=== PATIENT | female | born 1930 | race Caucasian/White ===

== ENCOUNTER 2017-03-30 19:17 | Emergency (ER) | payer MEDICARE, BC ==
[~2017-03-30] VITALS: Ht 157.5 cm; Wt 66.7 kg
[~2017-03-30 19:17] MED LIST: AMLO10 PO; ASPI325T PO; DIOV80TA4 PO; DOXA1 PO; FISH1000 PO; GLUCTAB PO; KCL10C PO; KLOR20TA6 PO; LISI10TA PO; OMEP20TA OR; OS-CTAB3 PO; OXYBXL10 PO; SIMV20 PO; TAB-TAB PO; ZOFR4TAB3 SL; stool softner PO
[2017-03-30 19:27] VITALS: BP 134/70; PULSE 69; RESP 18; TEMP 97.6; O2SAT 94
[2017-03-30 19:48] VITALS: BP 156/69; PULSE 83; RESP 16; O2SAT 97
[2017-03-30 19:52] VITALS: BP 156/69; PULSE 66; RESP 16; O2SAT 97
--- NOTE | 2017-03-30 19:57 | PD ---
HPI Chief Complaint: Dizziness Time Seen by Provider: 19:43 Travel History International Travel<30 days: No Contact w/Intl Traveler<30days: No Traveled to known affect area: No History of Present Illness HPI 87-year-old female complains of dizziness and nausea. Patient states that the symptoms started this morning. Patient states that she woke up with the dizziness and nausea. The symptoms have been intermittent all day since then. Patient states the dizziness is worse with head movement. Patient denies any headache. Patient denies any visual change. Patient denies any neck pain. Patient has occasional mid back pain and shooting pain down the right arm recently. Patient denies any pain now. Patient denies any chest pain or shortness of breath. Patient denies abdominal pain. Patient denies any focal weakness or numbness of extremity. Patient denies any recent all other injury. Patient denies any fever chills. PFSH Past Medical History Arthritis: Yes Cancer: No Cardiovascular Problems: No High Cholesterol: Yes Diabetes: Yes Diminished Hearing: No Endocrine: No Gastrointestinal Disorders: Yes (reflux) GERD: Yes Glaucoma: No Genitourinary: No Hepatitis: No Hiatal Hernia: No Hypertension: Yes Immune Disorder: No Implanted Vascular Access Dvce: Yes Musculoskeletal: Yes (arthritis) Neurologic: No Psychiatric: No Reproductive: No Respiratory: No Thyroid Disease: No ?: Not Tubal Ligation: Yes Past Surgical History Abdominal Surgery: Yes (lap zac) Ear Surgery: Yes (manisha inner ear reconstruction) Eye Surgery: Yes (manisha cataract ) Genitourinary Surgery: Yes (BLADDER SUSPENSION) Gynecologic Surgery: Yes (tubaligation) Joint Replacement: Yes (right knee) Pacemaker: No Other Surgery: Yes Social History Alcohol Use: No Tobacco Use: No Substance Use: No Allergies-Medications (Allergen,Severity, Reaction): Coded Allergies: Penicillin (Verified Allergy, Severe, HIVES, 03/30/17) Reported Meds & Prescriptions Reported Meds & Active Scripts Active Reported Fish Oil ([place]-3 Fatty Acids) 1,000 Mg Cap 1,000 Mg PO TID Fish Oil ([place]-3 Fatty Acids) 1,000 Mg Cap 1,000 Mg PO DAILY Potassium Chloride ER (Potassium Chloride) 20 Meq Tab 20 Meq PO DAILY Omeprazole 20 Mg Cap 20 Mg PO Simvastatin 20 Mg Tab 20 Mg PO DAILY Metformin (Metformin HCl) 500 Mg Tab 500 Mg PO DAILY With a meal Ditropan XL 24 HR (Oxybutynin Chloride) 10 Mg Tab 10 Mg PO EVERY OTHER DAY Doxazosin (Doxazosin Mesylate) 8 Mg Tab 8 Mg PO DAILY Diovan (Valsartan) 80 Mg Tab 80 Mg PO BID Lisinopril-Hctz 20-12.5 Mg Tab 1 Tab PO DAILY Amlodipine (Amlodipine Besylate) 10 Mg Tab 10 Mg PO DAILY Review of Systems General / Constitutional: No: Fever Eyes: No: Visual changes HENT: Positive: Lightheadedness, No: Headaches Cardiovascular: No: Chest Pain or Discomfort Respiratory: No: Shortness of Breath Gastrointestinal: Positive: Nausea, No: Abdominal Pain Genitourinary: No: Dysuria Musculoskeletal: No: Pain Skin: No Rash Neurologic: No: Weakness Psychiatric: No: Depression Endocrine: No: Polydipsia Hematologic/Lymphatic: No: Easy Bruising Physical Exam Narrative GENERAL: Well-nourished, well-developed patient. SKIN: Focused skin assessment warm/dry. HEAD: Normocephalic. EYES: No scleral icterus. No injection or drainage. Pupils 2 mm equal reactive. NECK: Supple, trachea midline. No JVD or lymphadenopathy. CARDIOVASCULAR: Regular rate and rhythm without murmurs, gallops, or rubs. RESPIRATORY: Breath sounds equal bilaterally. No accessory muscle use. GASTROINTESTINAL: Abdomen soft, non-tender, nondistended. MUSCULOSKELETAL: No cyanosis, or edema. BACK: Nontender without obvious deformity. No CVA tenderness. Neurologic exam: Patient's awake and alert oriented 3. No obvious focal neurological deficit. Data Data Last Documented VS Vital Signs Date Time Temp Pulse Resp B/P Pulse Ox O2 Delivery O2 Flow Rate FiO2 03/30/17 20:41 66 16 98 Room Air 03/30/17 19:52 156/69 03/30/17 19:27 97.6 Orders Electrocardiogram (03/30/17 19:50) Complete Blood Count With Diff (03/30/17 19:50) Comprehensive Metabolic Panel (03/30/17 19:50) Prothrombin Time / Inr (Pt) (03/30/17 19:50) Act Partial Throm Time (Ptt) (03/30/17 19:50) Urinalysis - C+S If Indicated (03/30/17 19:50) Ct Brain W/O Iv Contrast(Rout) (03/30/17 19:50) Iv Access Insert/Monitor (03/30/17 19:50) Ecg Monitoring (03/30/17 19:50) Oximetry (03/30/17 19:50) Meclizine (Antivert) (03/30/17 20:00) Ondansetron Inj (Zofran Inj) (03/30/17 20:00) Sodium Chlor 0.9% 1000 Ml Inj (Ns 1000 M (03/30/17 20:00) Urine Culture (03/30/17 20:20) Labs Laboratory Tests Test 03/30/17 03/30/17 20:20 20:30 Urine Color YELLOW Urine Turbidity CLEAR Urine pH 7.0 Urine Specific [place] 1.012 Urine Protein NEG mg/dL Urine Glucose (UA) NEG mg/dL Urine Ketones TRACE mg/dL Urine Occult Blood NEG Urine Nitrite NEG Urine Bilirubin NEG Urine Leukocyte Esterase SMALL Urine WBC 3-5 /hpf Urine WBC Clumps OCC Urine Squamous Epithelial 0-5 /hpf Cells Urine Hyaline Casts 6-9 /lpf Microscopic Urinalysis Comment CULTURE INDICATED White Blood Count 6.0 TH/MM3 Red Blood Count 4.72 MIL/MM3 Hemoglobin 14.3 GM/DL Hematocrit 42.8 % Mean Corpuscular Volume 90.9 FL Mean Corpuscular Hemoglobin 30.4 PG Mean Corpuscular Hemoglobin 33.4 % Concent Red Cell Distribution Width 12.2 % Platelet Count 242 TH/MM3 Mean Platelet Volume 7.9 FL Neutrophils (%) (Auto) 83.4 % Lymphocytes (%) (Auto) 11.1 % Monocytes (%) (Auto) 4.3 % Eosinophils (%) (Auto) 0.8 % Basophils (%) (Auto) 0.4 % Neutrophils # (Auto) 5.0 TH/MM3 Lymphocytes # (Auto) 0.7 TH/MM3 Monocytes # (Auto) 0.3 TH/MM3 Eosinophils # (Auto) 0.0 TH/MM3 Basophils # (Auto) 0.0 TH/MM3 CBC Comment DIFF FINAL Differential Comment Prothrombin Time 10.9 SEC Prothromb Time International 1.0 RATIO Ratio Activated Partial 28.1 SEC Thromboplast Time Sodium Level 138 MEQ/L Potassium Level 3.1 MEQ/L Chloride Level 101 MEQ/L Carbon Dioxide Level 26.5 MEQ/L Anion Gap 11 MEQ/L Blood Urea Nitrogen 14 MG/DL Creatinine 0.83 MG/DL Estimat Glomerular Filtration 65 ML/MIN Rate Random Glucose 146 MG/DL Calcium Level 9.8 MG/DL Total Bilirubin 0.5 MG/DL Aspartate Amino Transf 24 U/L (AST/SGOT) Alanine Aminotransferase 29 U/L (ALT/SGPT) Alkaline Phosphatase 71 U/L Total Protein 8.0 GM/DL Albumin 4.2 GM/DL MDM Medical Decision Making Medical Screen Exam Complete: Yes Emergency Medical Condition: Yes Interpretation(s) Last Impressions Head CT 03/30/17 1950 Signed Impressions: Service Date/Time: Thursday, March 30, 2017 20:10 - CONCLUSION: Unremarkable noncontrast CT. Eladio Alejandro MD 21:47 PM. CBC within normal limit. Potassium 3.1. UA positive for WBC. Differential Diagnosis Differential diagnosis including acute vertigo, electrolyte imbalance, dehydration, TIA, CVA, arrhythmia. Narrative Course 87-year-old female with dizziness and nausea. Normal saline solution 100 cc an hour. Zofran 4 mg IV. Meclizine 25 mg by mouth. KCl 40 mEq by mouth given. Bactrim DS one tablet by mouth given. Diagnosis Primary Impression: Acute onset of severe vertigo Additional Impressions: Hypokalemia UTI (urinary tract infection) Qualified Code: N30.00 - Acute cystitis without hematuria Patient Instructions: General Instructions Additional Instructions: Take medications as directed. Follow-up with personal physician. Return if persistent problem or worse. Med/Other Pt SpecificInfo: Prescription(s) given Scripts Potassium Chloride ER 10 Meq Cap10 Meq PO DAILY #7 CAP Ref 0 Prov:Ugo Dietrich MD 03/30/17 Ondansetron Odt (Zofran Odt)4 Mg Tab4 Mg SL Q6HR PRN (Nausea/Vomiting) #10 TAB Prov:Ugo Dietrich MD 03/30/17 Meclizine 25 Mg Tab25 Mg PO TID PRN (VERTIGO) #21 TAB Prov:Ugo Dietrich MD 03/30/17 Sulfamethoxazole-Trimethoprim (Bactrim DS)800-160 Mg Tab1 Tab PO BID #14 TAB Prov:Ugo Dietrich MD 03/30/17 Disposition: 01 DISCHARGE HOME Condition: Stable Ugo Dietrich MD Mar 30, 2017 19:57
[2017-03-30] MEDS ORDERED: SODIUM CHLOR 0.9% 1000 ML INJ 1,000 ML IV SCH (20:00)
[2017-03-30] MEDS ORDERED: ONDANSETRON HCL 4 MG/2 ML VIAL IV PUSH ONE (20:00)
[2017-03-30] MEDS ORDERED: MECLIZINE HCL 25 MG TAB PO ONE (20:00)
--- NOTE | 2017-03-30 20:31 | RADRPT ---
EXAM DATE/TIME: 03/30/2017 20:10 [facility] COMPARISON: CT BRAIN W/O CONTRAST, July 19, 2016, 17:38. INDICATIONS : Dizziness. Nausea. RADIATION DOSE: 55.92 CTDIvol (mGy) MEDICAL HISTORY : Hypertension. Diabetes mellitus type 2. SURGICAL HISTORY : None. ENCOUNTER: Initial ACUITY: 1 day PAIN SCALE: 0/10 LOCATION: cranial TECHNIQUE: Multiple contiguous axial images were obtained of the head. Using automated exposure control and adj ustment of the mA and/or kV according to patient size, radiation dose was kept as low as reasonably a chievable to obtain optimal diagnostic quality images. DICOM format image data is available electro nically for review and comparison. FINDINGS: CEREBRUM: The ventricles are normal for age. No evidence of midline shift, mass lesion, hemorrhage or acute in farction. No extra-axial fluid collections are seen. POSTERIOR FOSSA: The cerebellum and brainstem are intact. The 4th ventricle is midline. The cerebellopontine angle i s unremarkable. EXTRACRANIAL: The visualized portion of the orbits is intact. SKULL: The calvaria is intact. No evidence of skull fracture. CONCLUSION: Unremarkable noncontrast CT. Eladio Alejandro MD on March 30, 2017 at 20:28 Board Certified Radiologist. This report was verified electronically.
[2017-03-30 20:44] LABS: BLOOD, URINE NEG (NEG); GLUCOSE,URINE NEG (NEG); KETONE, URINE TRACE mg/dL (NEG); NITRITE,URINE NEG (NEG)
[2017-03-30 20:45] LABS: BASOPHIL % 0.4 % (0.0-2.0); EOSINOPHIL % 0.8 % (0.0-4.0); HEMATOCRIT 42.8 % (35.0-46.0); HEMO FLAGS DIFF FINAL; LYMPH % 11.1 % (9.0-44.0); LYMPHOCYTE # 0.7 TH/MM3 (1.0-4.8); MEAN CELL VOLUME 90.9 FL (80.0-100.0); MEAN CORPUSCULAR HEMOGLOBIN 30.4 PG (27.0-34.0); MEAN CORPUSCULAR HGB CONC 33.4 % (32.0-36.0); MONO % 4.3 % (0.0-8.0); NEUT % 83.4 % (16.0-70.0); PLATELET COUNT 242 TH/MM3 (150-450); RED BLOOD COUNT 4.72 MIL/MM3 (4.00-5.30); RED CELL DISTRIBUTION WIDTH 12.2 % (11.6-17.2)
[2017-03-30] MEDS ORDERED: OXYBXL10 PO (20:58)
[2017-03-30] MEDS ORDERED: LISI20TA PO (20:58)
[2017-03-30] MEDS ORDERED: AMLO10TA2 PO (20:58)
[2017-03-30] MEDS ORDERED: OMEP20CA2 PO (20:58)
[2017-03-30] MEDS ORDERED: FISH1000 PO (20:58)
[2017-03-30] MEDS ORDERED: DOXA1TAB43 PO (20:58)
[2017-03-30] MEDS ORDERED: DIOV80TA4 PO (20:58)
[2017-03-30] MEDS ORDERED: SIMV20TA PO (20:58)
[2017-03-30] MEDS ORDERED: METF500T PO (20:58)
[2017-03-30] MEDS ORDERED: POTA-163 PO (20:58)
[2017-03-30 20:59] LABS: CHLORIDE 101 MEQ/L (98-107); POTASSIUM 3.1 MEQ/L (3.5-5.1); SODIUM (NA) 138 MEQ/L (136-145)
[2017-03-30 21:03] LABS: ANION GAP 11 MEQ/L (5-15); BICARBONATE 26.5 MEQ/L (21.0-32.0); BLOOD UREA NITROGEN 14 MG/DL (7-18)
[2017-03-30 21:06] LABS: ALT (GPT) 29 U/L (10-53); APTT (PATIENT) 28.1 SEC (24.3-30.1); AST (GOT) 24 U/L (15-37); GLOMERULAR FILTRATION RATE 65 ML/MIN (>89); PROTHROMBIN TIME - PATIENT 10.9 SEC (9.8-11.6)
[2017-03-30 21:08] LABS: TOTAL BILIRUBIN ADULT 0.5 MG/DL (0.2-1.0)
[2017-03-30 21:09] LABS: ALKALINE PHOSPHATASE 71 U/L (45-117)
[2017-03-30 21:12] LABS: URINE COLOR YELLOW (YELLW/STRAW)
[2017-03-30 21:15] VITALS: BP 197/87; PULSE 74; RESP 16; O2SAT 97
[2017-03-30 21:15] LABS: COMMENT (UR) CULTURE INDICATED; CULTURE IF INDICATED CULTURE INDICATED; SQUAMOUS EPITHELIAL CELL URINE 0-5 /hpf (0-5)
[2017-03-30] MEDS ORDERED: ZOFR4TAB3 SL (21:54)
[2017-03-30] MEDS ORDERED: POTA10CA PO (21:54)
[2017-03-30] MEDS ORDERED: MECL-62 PO (21:54)
[2017-03-30] MEDS ORDERED: BACT800T5 PO (21:54)
[2017-03-30] MEDS ORDERED: SULFAMETHOXAZOLE-TRIMETHOPRIM DS 800-160 MG TAB PO ONE (22:00)
[2017-03-30] MEDS ORDERED: POTASSIUM CHLORIDE 20 MEQ CONTROLLED RELEASE TAB PO ONE (22:00)
[2017-03-30 22:20] VITALS: BP 172/94; PULSE 77; RESP 16; O2SAT 97
--- NOTE | 2017-03-31 13:24 | EKG ---
Date Performed: 03/30/2017 Time Performed: 20:01:13 PTAGE: 87 years EKG: Sinus rhythm WITH OCCASIONAL VENTRICULAR PREMATURE COMPLEXES NONSPECIFIC T-WAVE ABNORMALITY BORDERLINE ECG Compar ed to prior tracing no significant change PREVIOUS TRACING : 07/19/2016 17.15 DOCTOR: Vijay Thompson Interpretating Date/Time 03/31/2017 13:21:57
== END 2017-03-30 22:26 | disposition home or self-care (01) ==
LOC: PHED 19:17
DX: R42 Dizziness and giddiness (principal); E87.6 Hypokalemia; N30.00 Acute cystitis without hematuria; R11.0 Nausea; M79.601 Pain in right arm; M54.6 Pain in thoracic spine; R94.31 Abnormal electrocardiogram [ECG] [EKG]; E11.9 Type 2 diabetes mellitus without complications; I10 Essential (primary) hypertension; E78.00 Pure hypercholesterolemia, unspecified; Z79.84 Long term (current) use of oral hypoglycemic drugs; Z87.39 Personal history of other diseases of the musculoskeletal system and connective tissue; Z87.19 Personal history of other diseases of the digestive system
CPT/HCPCS: 70450; 80053; 81001; 85025; 85610; 85730; 87086; 93005; 96361; 96374; 99285; J2405; J7030

== ENCOUNTER 2017-04-03 13:32 | Observation (INO) | payer MEDICARE, BC ==
[~2017-04-03] VITALS: Ht 157.5 cm; Wt 67.0 kg
[~2017-04-03 13:32] MED LIST changes: -AMLO10 PO; +AMLO10TA2 PO; -ASPI325T PO; +BACT800T5 PO; -DOXA1 PO; +DOXA1TAB43 PO; -GLUCTAB PO; -KCL10C PO; -KLOR20TA6 PO; -LISI10TA PO; +LISI20TA PO; +MECL-62 PO; +METF500T PO; +OMEP20CA2 PO; -OMEP20TA OR; -OS-CTAB3 PO; +POTA-163 PO; +POTA10CA PO; -SIMV20 PO; +SIMV20TA PO; -TAB-TAB PO; -stool softner PO
[2017-04-03 13:45] VITALS: BP 128/64; PULSE 70; RESP 18; TEMP 97.7; O2SAT 97
[2017-04-03] MEDS ORDERED: SODIUM CHLOR 0.9% 1000 ML INJ 1,000 ML IV ONE (14:04)
[2017-04-03] MEDS ORDERED: SODIUM CHLORIDE 0.9% FLUSH 10 ML FLUSH IVF PRN (14:15)
[2017-04-03] MEDS ORDERED: ONDANSETRON HCL 4 MG/2 ML VIAL IVP ONE (14:15)
[2017-04-03 14:18] LABS: BLOOD, URINE NEG (NEG); GLUCOSE,URINE NEG (NEG); KETONE, URINE NEG (NEG); NITRITE,URINE NEG (NEG); PH, URINE 7.5 (5.0-8.5)
[2017-04-03 14:19] LABS: AUTOMATED NEUTROPHIL # 3.3 TH/MM3 (1.8-7.7); BASOPHIL % 0.8 % (0.0-2.0); EOSINOPHIL # 0.2 TH/MM3 (0-0.4); EOSINOPHIL % 3.5 % (0.0-4.0); HEMO FLAGS DIFF FINAL; LYMPH % 25.1 % (9.0-44.0); LYMPHOCYTE # 1.3 TH/MM3 (1.0-4.8); MEAN CELL VOLUME 90.5 FL (80.0-100.0); MEAN CORPUSCULAR HEMOGLOBIN 30.7 PG (27.0-34.0); MEAN CORPUSCULAR HGB CONC 33.9 % (32.0-36.0); MONO % 8.6 % (0.0-8.0); PLATELET COUNT 185 TH/MM3 (150-450); RED BLOOD COUNT 4.09 MIL/MM3 (4.00-5.30); RED CELL DISTRIBUTION WIDTH 12.1 % (11.6-17.2); WHITE BLOOD COUNT 5.2 TH/MM3 (4.0-11.0)
[2017-04-03 14:26] LABS: CHLORIDE 100 MEQ/L (98-107); POTASSIUM 3.4 MEQ/L (3.5-5.1); SODIUM (NA) 136 MEQ/L (136-145)
[2017-04-03 14:29] LABS: ANION GAP 11 MEQ/L (5-15); BICARBONATE 24.9 MEQ/L (21.0-32.0); BLOOD UREA NITROGEN 17 MG/DL (7-18); MAGNESIUM 1.9 MG/DL (1.5-2.5)
[2017-04-03 14:32] LABS: GLOMERULAR FILTRATION RATE 39 ML/MIN (>89)
[2017-04-03 14:39] VITALS: BP_SYST 128; BP_SYST 135; BP_SYST 140; BP_DIAS 52; BP_DIAS 62; BP_DIAS 64; RESP 18; O2SAT 97
[2017-04-03 14:39] LABS: CREATINE KINASE 54 U/L (26-192)
[2017-04-03 14:47] LABS: METHOD OF COLLECTION CLEAN CATCH; SQUAMOUS EPITHELIAL CELL URINE 0-5 /hpf (0-5); URINE COLOR YELLOW (YELLW/STRAW)
[2017-04-03 14:48] LABS: COMMENT (UR) CULT NOT INDICATED; CULTURE IF INDICATED CULT NOT INDICATED
--- NOTE | 2017-04-03 14:53 | PD ---
HPI Chief Complaint: Syncope/Near-Syncope Time Seen by Provider: 13:53 Travel History International Travel<30 days: No Contact w/Intl Traveler<30days: No Traveled to known affect area: No History of Present Illness HPI 87-year-old female arrives to the ER with a complaint of weakness generalized weakness which started while she was in [employer] today. She had to sit down. EMS was called and upon arrival blood pressure was in the 80s. 500 cc normal saline started and the patient reports improvement at the time of her evaluation in the ER. She did not actually lose consciousness earlier while [employer]. 4 days ago she was seen here and prescribed antibiotics for UTI. She was also diagnosed with hypokalemia and at that time she was diagnosed with vertigo as well. She has no vertigo today. She states she has otherwise been in her normal state of good health and is unsure whether she should have symptoms as she does. PFSH Past Medical History Arthritis: Yes Cancer: No Cardiovascular Problems: Yes (HTN) High Cholesterol: Yes Diabetes: Yes Patient Takes Glucophage: Yes ([id number]) Diminished Hearing: Yes Endocrine: No Gastrointestinal Disorders: Yes (reflux) GERD: Yes Glaucoma: No Genitourinary: No Hepatitis: No Hiatal Hernia: No Hypertension: Yes Immune Disorder: No Implanted Vascular Access Dvce: Yes Medical other: Yes (ACID REFLUX-BLADDER LEAKING-EARLY MACULAR DEGENERATION) Musculoskeletal: Yes (arthritis) Neurologic: No Psychiatric: No Reproductive: No Respiratory: No Immunizations Current: Yes Thyroid Disease: No Tetanus Vaccination: Unknown Influenza Vaccination: Yes ?: Not Dilation and Curettage (D&C): Yes Tubal Ligation: Yes Past Surgical History Abdominal Surgery: Yes (lap zac) Ear Surgery: Yes (manisha inner ear reconstruction) Eye Surgery: Yes (manisha cataract ) Genitourinary Surgery: Yes (BLADDER SUSPENSION) Gynecologic Surgery: Yes (tubaligation) Joint Replacement: Yes (right knee) Pacemaker: No Other Surgery: Yes Social History Alcohol Use: No Tobacco Use: No Substance Use: No Allergies-Medications (Allergen,Severity, Reaction): Coded Allergies: Penicillin (Verified Allergy, Severe, HIVES, 04/03/17) Reported Meds & Prescriptions Reported Meds & Active Scripts Active Meclizine (Meclizine HCl) 25 Mg Tab 25 Mg PO TID PRN Reported Fish Oil ([place]-3 Fatty Acids) 1,000 Mg Cap 1,000 Mg PO TID Potassium Chloride ER (Potassium Chloride) 20 Meq Tab 20 Meq PO DAILY Omeprazole 20 Mg Cap 20 Mg PO Simvastatin 20 Mg Tab 20 Mg PO DAILY Metformin (Metformin HCl) 500 Mg Tab 500 Mg PO DAILY With a meal Ditropan XL 24 HR (Oxybutynin Chloride) 10 Mg Tab 10 Mg PO EVERY OTHER DAY Doxazosin (Doxazosin Mesylate) 8 Mg Tab 8 Mg PO DAILY Diovan (Valsartan) 80 Mg Tab 80 Mg PO BID Amlodipine (Amlodipine Besylate) 10 Mg Tab 10 Mg PO DAILY Review of Systems Except as stated in HPI: all other systems reviewed are Neg Physical Exam Narrative GENERAL: 87 yo F, WNWD, NAD SKIN: Warm and dry. HEAD: Atraumatic. Normocephalic. EYES: Pupils equal and round. No scleral icterus. No injection or drainage. ENT: No nasal bleeding or discharge. Mucous membranes pink and moist. NECK: Trachea midline. No JVD. CARDIOVASCULAR: Regular rate and rhythm. RESPIRATORY: No accessory muscle use. Clear to auscultation. Breath sounds equal bilaterally. GASTROINTESTINAL: Abdomen soft, non-tender, nondistended. Hepatic and splenic margins not palpable. MUSCULOSKELETAL: Extremities without clubbing, cyanosis, or edema. No obvious deformities. NEUROLOGICAL: Awake and alert. No obvious cranial nerve deficits. Motor grossly within normal limits. Five out of 5 muscle strength in the arms and legs. Normal speech. PSYCHIATRIC: Appropriate mood and affect; insight and judgment normal. Data Data Last Documented VS Vital signs reviewed Orders Electrocardiogram (04/03/17 14:04) Basic Metabolic Panel (Bmp) (04/03/17 14:04) Complete Blood Count With Diff (04/03/17 14:04) Magnesium (Mg) (04/03/17 14:04) Ckmb (Isoenzyme) Profile (04/03/17 14:04) Troponin I (04/03/17 14:04) Urinalysis - C+S If Indicated (04/03/17 14:04) Blood Glucose (04/03/17 14:04) Ecg Monitoring (04/03/17 14:04) Iv Access Insert/Monitor (04/03/17 14:04) Oximetry (04/03/17 14:04) Ondansetron Inj (Zofran Inj) (04/03/17 14:15) Sodium Chloride 0.9% Flush (Ns Flush) (04/03/17 14:15) Sodium Chlor 0.9% 1000 Ml Inj (Ns 1000 M (04/03/17 14:04) Orthostatic Vital Signs (04/03/17 14:04) Admit Order (Ed Use Only) (04/03/17 15:22) Labs MDM Medical Decision Making Medical Screen Exam Complete: Yes Emergency Medical Condition: Yes Medical Record Reviewed: Yes Differential Diagnosis Electrolyte imbalance, arrhythmia, UTI, anemia, renal failure, hypoglycemia, dehydration, medication side effect Narrative Course CBC & BMP Diagram 04/03/17 14:10 Tn < 0.02 EKG: Sinus, rate 71, nonspecific T wave abnormality UA: No UTI Patient reports dizziness and lightheadedness at time of reassessment: 3:15 PM. Patient has acute kidney injury. She has no outside follow-up and she lives alone. Evidently Dr. Johnson's office has been closed and she has been unable to get through by phone. She even visited the office. In any case admission for management of dizziness/lightheadedness complaints and acute kidney injury is considered appropriate. Discussed with Dr. Pringle. Diagnosis Primary Impression: [place] (acute kidney injury) Additional Impression: Syncope, near Admitting Information Admitting Physician Requests: Observation Scripts Sennosides-Docusate Sodium (Senna Plus 8.6-50 mg)1 Tab Tab1 Tab PO BID #60 TAB Prov:Shahnaz Pringle MD 04/04/17 Sudarshan Sanchez MD Apr 03, 2017 14:53 Red Cell Distribution Width 12.1 % Platelet Count 185 TH/MM3 Mean Platelet Volume 8.0 FL Neutrophils (%) (Auto) 62.0 % Lymphocytes (%) (Auto) 25.1 % Monocytes (%) (Auto) 8.6 % Eosinophils (%) (Auto) 3.5 % Basophils (%) (Auto) 0.8 % Neutrophils # (Auto) 3.3 TH/MM3 Lymphocytes # (Auto) 1.3 TH/MM3 Monocytes # (Auto) 0.4 TH/MM3 Eosinophils # (Auto) 0.2 TH/MM3 Basophils # (Auto) 0.0 TH/MM3 CBC Comment DIFF FINAL Differential Comment Urine Collection Type CLEAN CATCH Urine Color YELLOW Urine Turbidity CLEAR Urine pH 7.5 Urine Specific [place] 1.014 Urine Protein NEG mg/dL Urine Glucose (UA) NEG mg/dL Urine Ketones NEG mg/dL Urine Occult Blood NEG Urine Nitrite NEG Urine Bilirubin NEG Urine Leukocyte Esterase MOD Urine WBC 3-5 /hpf Urine Squamous Epithelial 0-5 /hpf Cells Urine Renal Epithelial Cells 6-8 /hpf Urine Hyaline Casts 3-5 /lpf Microscopic Urinalysis Comment CULT NOT INDICATED Urine Collection Time 14:10 Sodium Level 136 MEQ/L Potassium Level 3.4 MEQ/L Chloride Level 100 MEQ/L Carbon Dioxide Level 24.9 MEQ/L Anion Gap 11 MEQ/L Blood Urea Nitrogen 17 MG/DL Creatinine 1.30 MG/DL Estimat Glomerular Filtration 39 ML/MIN Rate Random Glucose 117 MG/DL Calcium Level 8.8 MG/DL Magnesium Level 1.9 MG/DL Total Creatine Kinase 54 U/L Troponin I LESS THAN 0.02 NG/ML MDM Medical Decision Making Medical Screen Exam Complete: Yes Emergency Medical Condition: Yes Medical Record Reviewed: Yes Differential Diagnosis Electrolyte imbalance, arrhythmia, UTI, anemia, renal failure, hypoglycemia, dehydration, medication side effect Narrative Course CBC & BMP Diagram 04/03/17 14:10 Tn < 0.02 EKG: Sinus, rate 71, nonspecific T wave abnormality UA: No UTI Patient reports dizziness and lightheadedness at time of reassessment: 3:15 PM. Diagnosis Primary Impression: [place] (acute kidney injury) Additional Impression: Syncope, near Admitting Information Admitting Physician Requests: Observation Sudarshan Sanchez MD Apr 03, 2017 14:53
[2017-04-03] MEDS ORDERED: SENNOSIDES 8.6 MG TAB PO PRN (15:30)
[2017-04-03] MEDS ORDERED: MECLIZINE HCL 25 MG TAB PO PRN (15:30)
[2017-04-03] MEDS ORDERED: POTASSIUM CHLORIDE 10 MEQ CONTROLLED RELEASE TAB PO ONE (15:30)
[2017-04-03] MEDS ORDERED: ACETAMINOPHEN 325 MG TAB PO PRN (15:30)
[2017-04-03] MEDS ORDERED: BISACODYL 10 MG SUPP RECTAL PRN ×2 (15:30→18:45)
[2017-04-03] MEDS ORDERED: SODIUM CHLORIDE 0.9% FLUSH 10 ML FLUSH IV FLUSH PRN (15:30)
[2017-04-03] MEDS ORDERED: ONDANSETRON HCL 4 MG/2 ML VIAL IVP PRN (15:30)
[2017-04-03] MEDS ORDERED: LACTULOSE SYRUP 20 GM/30 ML CUP PO PRN ×2 (15:30→18:45)
[2017-04-03] MEDS ORDERED: MAGNESIUM HYDROXIDE SUSP 30 ML CUP PO PRN (15:30)
[2017-04-03] MEDS ORDERED: TEMAZEPAM 15 MG CAP PO PRN (15:30)
[2017-04-03] MEDS: SODIUM CHLOR 0.9% 1000 ML INJ 1,000 ML IV SCH (16:49)
[2017-04-03 16:50] VITALS: BP 127/51; PULSE 96; RESP 18; O2SAT 98
[2017-04-03] MEDS ORDERED: ENOXAPARIN SODIUM 30 MG/0.3 ML SYRINGE SQ SCH (17:00)
--- NOTE | 2017-04-03 17:45 | HHI.HP ---
[facility] Don[facility] MD Admission Diagnosis EVERETT, Near Syncope Diagnoses: (1) Pre-syncope Diagnosis: Principal (2) EVERETT (acute kidney injury) Diagnosis: Principal (3) Hypokalemia Diagnosis: Principal (4) Constipation Diagnosis: Principal Chief Complaint: "felt sick" lightheaded, dizzy Travel History International Travel<30 Days: No Contact w/Intl Traveler <30 Da: No Traveled to Known Affected Are: No History of Present Illness 70 year-old female history of hypertension, hyperlipidemia, diabetes, GERD, bladder incontinence is admitted for EVERETT and presyncope. Patient states she was at the grocery store and felt sick. She was feeling lightheaded and dizzy but denies it feeling as if the room were spinning. She sat down and states she felt that she was "floating" but denies any loss of consciousness. According to the ED note blood pressure was in the 80s upon EMS arrival. The patient admits to having felt generalized weakness and trembling while here in the ED but this has improved. She is no longer dizzy. Denies any focal weakness, headache, diplopia, neck pain, fevers or chills, cold symptoms aside from chronic dry cough possibly associated with Lisinopril, rashes, current chest pain, shortness of breath, abdominal pain, nausea, vomiting, current dysuria, diarrhea, hematochezia, or melena. Admits to increased urinary frequency but has chronic urinary incontinence. She states she has spells of constipation and her last bowel movement was Friday. Patient was last evaluated in the ED on 03/30/17 and diagnosed with vertigo and prescribed meclizine. She was also diagnosed with a UTI at that time and prescribed Bactrim but urine culture from that time indicates probable contaminants. She has various other complaints stating that she gets intermittent "blippy" pain over the left chest but this last occurred 1 month ago, none recently. She does not know how long this has been going on but states it has been lasting longer when it occurs although it resolves spontaneously. She denies any associated diaphoresis or shortness of breath when it occurs nor any association with exertion. I asked the patient if she addressed this with her primary care physician but she states she has not been able to see him. States she was supposed to have an appointment Friday for blood work (Dr. Johnson closed his practice and patient was unaware). She also has tingling over the dorsal aspects of both forearms but this has been chronic ongoing for months. She also states she has a pain in the right side of the back which "zips up" feels like lightning going to her right arm. She denies any pain, numbness, tingling in the legs. Denies any muscle cramps. Has trouble focusing her eyes , but has macular degeneration. States she had a carotid ultrasound in November but never got the results from Dr. Johnson. Review of Systems Constitutional: DENIES: Diaphoretic episodes, Fever, Chills Eyes: DENIES: Diplopia Ears, nose, mouth, throat: DENIES: Throat pain, Ear Pain, Running Nose Respiratory: COMPLAINS OF: Cough, DENIES: Shortness of breath Cardiovascular: DENIES: Chest pain (none recently) Gastrointestinal: COMPLAINS OF: Constipation, DENIES: Abdominal pain, Black stools, Bloody stools, Diarrhea, Nausea, Vomiting Genitourinary: COMPLAINS OF: Urinary frequency, DENIES: Dysuria Musculoskeletal: COMPLAINS OF: Back pain, DENIES: Neck pain Integumentary: DENIES: Rash Neurologic: COMPLAINS OF: Paresthesias (chronic arms), DENIES: Headache, Localized weakness Past Family Social History Past Medical History Hypertension Hyperlipidemia Diabetes GERD Bladder incontinence Arthritis of the back Macular degeneration Past Surgical History Laparoscopic cholecystectomy Bilateral inner ear reconstruction Bilateral cataracts Bladder suspension Tubal ligation Multiple D&Cs Right knee TKA Reported Medications Reported Meds & Active Scripts Active Meclizine (Meclizine HCl) 25 Mg Tab 25 Mg PO TID PRN Bactrim DS (Sulfamethoxazole-Trimethoprim) 800-160 Mg Tab 1 Tab PO BID Reported Fish Oil ([place]-3 Fatty Acids) 1,000 Mg Cap 1,000 Mg PO TID Potassium Chloride ER (Potassium Chloride) 20 Meq Tab 20 Meq PO DAILY Omeprazole 20 Mg Cap 20 Mg PO Simvastatin 20 Mg Tab 20 Mg PO DAILY Metformin (Metformin HCl) 500 Mg Tab 500 Mg PO DAILY With a meal Ditropan XL 24 HR (Oxybutynin Chloride) 10 Mg Tab 10 Mg PO EVERY OTHER DAY Doxazosin (Doxazosin Mesylate) 8 Mg Tab 8 Mg PO DAILY Diovan (Valsartan) 80 Mg Tab 80 Mg PO BID Lisinopril-Hctz 20-12.5 Mg Tab 1 Tab PO DAILY Amlodipine (Amlodipine Besylate) 10 Mg Tab 10 Mg PO DAILY Allergies: Coded Allergies: Penicillin (Verified Allergy, Severe, HIVES, 04/03/17) Family History Mother: Hypertension; cancer later in life but patient cannot recall what type. Father: CAD; stroke at age 79. Social History Tried cigarettes but NO history of regular tobacco use. Denies alcohol use. Denies illicit drug use. Physical Exam Vital Signs Vital Signs Date Time Temp Pulse Resp B/P Pulse Ox O2 Delivery O2 Flow Rate FiO2 04/03/17 16:50 96 18 127/51 98 Room Air 04/03/17 14:39 97 Room Air 04/03/17 14:39 63 18 128/52 65 18 140/62 73 18 135/64 04/03/17 13:45 97.7 70 18 128/64 97 04/03/17 13:40 70 97 Room Air Physical Exam GENERAL: This is a pleasant well-nourished, well-developed patient, in no apparent distress, appears younger than her stated age. SKIN: Red birthmark to R posterior neck. No rashes, ecchymoses or lesions. Warm and dry. HEAD: Atraumatic. Normocephalic. EYES: Pupils equal round and reactive. No scleral icterus. ENT: MMM. Throat without erythema or exudate. Uvula midline. Airway patent. NECK: Trachea midline. No carotid bruits bilaterally. CARDIOVASCULAR: Regular rate and rhythm without murmurs, gallops, or rubs. RESPIRATORY: Clear to auscultation. Breath sounds equal bilaterally. No wheezes , rales, or rhonchi. GASTROINTESTINAL: Abdomen soft, non-tender, nondistended. MUSCULOSKELETAL: No lower extremity edema bilaterally. BACK: No tenderness over the thoracolumbar muscles. No CVA tenderness bilaterally. NEUROLOGICAL: Awake and alert. Motor grossly within normal limits. Five out of 5 muscle strength in bilateral upper and lower extremities. Normal speech. Laboratory Laboratory Tests Test 04/03/17 14:10 White Blood Count 5.2 Red Blood Count 4.09 Hemoglobin 12.6 Hematocrit 37.0 Mean Corpuscular Volume 90.5 Mean Corpuscular Hemoglobin 30.7 Mean Corpuscular Hemoglobin 33.9 Concent Red Cell Distribution Width 12.1 Platelet Count 185 Mean Platelet Volume 8.0 Neutrophils (%) (Auto) 62.0 Lymphocytes (%) (Auto) 25.1 Monocytes (%) (Auto) 8.6 Eosinophils (%) (Auto) 3.5 Basophils (%) (Auto) 0.8 Neutrophils # (Auto) 3.3 Lymphocytes # (Auto) 1.3 Monocytes # (Auto) 0.4 Eosinophils # (Auto) 0.2 Basophils # (Auto) 0.0 CBC Comment DIFF FINAL Differential Comment Urine Collection Type CLEAN CATCH Urine Color YELLOW Urine Turbidity CLEAR Urine pH 7.5 Urine Specific [place] 1.014 Urine Protein NEG Urine Glucose (UA) NEG Urine Ketones NEG Urine Occult Blood NEG Urine Nitrite NEG Urine Bilirubin NEG Urine Leukocyte Esterase MOD Urine WBC 3-5 Urine Squamous Epithelial 0-5 Cells Urine Renal Epithelial Cells 6-8 Urine Hyaline Casts 3-5 Microscopic Urinalysis Comment CULT NOT INDICATED Urine Collection Time 14:10 Sodium Level 136 Potassium Level 3.4 Chloride Level 100 Carbon Dioxide Level 24.9 Anion Gap 11 Blood Urea Nitrogen 17 Creatinine 1.30 Estimat Glomerular Filtration 39 Rate Random Glucose 117 Calcium Level 8.8 Magnesium Level 1.9 Total Creatine Kinase 54 Troponin I LESS THAN 0.02 Result Diagram: 04/03/17 1410 04/03/17 1410 Assessment and Plan Assessment and Plan 87-year-old female with: Presyncope: Resolved. Attributed to hypotension likely resulting from dehydration. Generalized weakness has improved. Patient no longer dizzy. Does not sound like vertigo. CBC unremarkable. EKG with normal sinus rhythm. There are deep S waves in lead 3; S waves in aVF, and nonspecific flattened T waves in lead I and aVL. Troponin less than 0.02. UA with moderate leukocyte esterase, but no increase in urine white blood cells or nitrites. -Neuro checks -PT EVERETT: Creatinine 0.83 (03/30)-->1.30 today. -IV NS @ 100 mL/hr -Monitor intake and output -Repeat am BMP -Avoid nephrotoxins Hypokalemia: Mild 3.4. K+ was 3.1 on 03/30/17. -Patient given 30 mEq by mouth KCl in the ED. -Continue home KCl 20 mEq daily by mouth Constipation: No BM since 03/30/17. -One dose of Lactulose now. Lactulose and Dulcolax as needed for severe constipation. DM: Patient only on metformin at home. BGL 117 in the ED. -Hold metformin. -Bedside Accu-Cheks with low dose sliding scale insulin as needed Hypertension: Patient was initially hypotensive on EMS arrival according to the ED note, but BP has normalized. -Continue Doxazosin and Amlodipine -Hold Diovan and Lisinopril-HCTZ due to impaired renal function Other chronic medical problems include bladder incontinence, GERD, hyperlipidemia: -Continue home medications DVT prevention: TEDs/SCDs. Discussed Condition With patient Attending Statement see my note Angela Diaz Apr 03, 2017 17:45 Shahnaz Pringle MD Apr 03, 2017 20:50
[2017-04-03] MEDS ORDERED: GLUCAGON 1 MG/ML VIAL OTHER PRN (18:00)
[2017-04-03] MEDS ORDERED: DEXTROSE 50% IN WATER 50 ML VIAL(D50) IV PRN (18:00)
[2017-04-03] MEDS ORDERED: NON-FORMULARY DRUG (Omega-3 Fatty Acids (Fish Oil) 1,000 MG) PO SCH (18:00)
[2017-04-03 18:19] VITALS: BP 153/83; PULSE 85; RESP 18; O2SAT 97
[2017-04-03] MEDS ORDERED: LACTULOSE SYRUP 20 GM/30 ML CUP PO ONE (19:45)
[2017-04-03 20:00] VITALS: BP 150/71; PULSE 77; RESP 18; TEMP 98.5; O2SAT 95
--- NOTE | 2017-04-03 20:27 | HHI.HP ---
[facility] Service [facility] Primary Care Physician Donato Johnson MD Admission Diagnosis [place]ETT, Near Syncope Diagnoses: (1) Pre-syncope Diagnosis: Principal (2) [place] (acute kidney injury) Diagnosis: Principal (3) Hypokalemia Diagnosis: Principal (4) Constipation Diagnosis: Principal Travel History International Travel<30 Days: No Contact w/Intl Traveler <30 Da: No Traveled to Known Affected Are: No History of Present Illness The patient is very pleasant 70 year-old female with past medical history of diabetes mellitus type 2, bladder incontinence, hypertension, hyperlipidemia, GERD, bladder incontinence who came to the emergency room for evaluation of dizziness. The patient was at [employer] when she felt dizzy described as fading away and generalized weakness while she was shopping. She managed to sit down and did not fell, did not lose consciousness. Cannot specify for how long she was dizzy. Says dizziness resolved spontaneously. Can't pinpoint alleviating or aggravating factors. Denies having previous similar episodes. She did not feel that she is spinning or that the room is spinning either. Did not have any seizures. No sensory or motor deficit. She did not have any chest pain or shortness of breath. Says she did eat today well. Says symptoms of vertigo started recently when she came to the emergency room on last previous admission 03/30 and says she was found with a UTI and vertigo. She was taking antibiotics for the UTI prescribing the emergency room as well as meclizine for vertigo , this are her only recent new medications. Says she doesn't have urinary complaints, no fever or chills. No abdominal pain. Denies chest pain, palpitations, diaphoresis, nausea, vomiting, diarrhea or constipation. Has trouble focusing her eyes, but has macular degeneration. States she had a carotid ultrasound in November but never got the results from Dr. Johnson. States she was supposed to have an appointment Friday for blood work with Dr. Johnson, however Dr Johnson closed his practice and patient was unaware. Daughter at bedside wo works for [employer] says she will help her mother to get her a new PCP. Otherwise no complaints. Review of Systems Except as stated in HPI: all other systems reviewed are Neg Past Family Social History Past Medical History Hypertension Hyperlipidemia Diabetes GERD Bladder incontinence Arthritis of the back Macular degeneration Past Surgical History Laparoscopic cholecystectomy Bilateral inner ear reconstruction Bilateral cataracts Bladder suspension Tubal ligation Multiple D&Cs Right knee TKA Reported Medications Reported Meds & Active Scripts Active Meclizine (Meclizine HCl) 25 Mg Tab 25 Mg PO TID PRN Bactrim DS (Sulfamethoxazole-Trimethoprim) 800-160 Mg Tab 1 Tab PO BID Reported Fish Oil ([place]-3 Fatty Acids) 1,000 Mg Cap 1,000 Mg PO TID Potassium Chloride ER (Potassium Chloride) 20 Meq Tab 20 Meq PO DAILY Omeprazole 20 Mg Cap 20 Mg PO Simvastatin 20 Mg Tab 20 Mg PO DAILY Metformin (Metformin HCl) 500 Mg Tab 500 Mg PO DAILY With a meal Ditropan XL 24 HR (Oxybutynin Chloride) 10 Mg Tab 10 Mg PO EVERY OTHER DAY Doxazosin (Doxazosin Mesylate) 8 Mg Tab 8 Mg PO DAILY Diovan (Valsartan) 80 Mg Tab 80 Mg PO BID Lisinopril-Hctz 20-12.5 Mg Tab 1 Tab PO DAILY Amlodipine (Amlodipine Besylate) 10 Mg Tab 10 Mg PO DAILY Allergies: Coded Allergies: Penicillin (Verified Allergy, Severe, HIVES, 04/03/17) Family History Mother: Hypertension; cancer later in life but patient cannot recall what type. Father: CAD; stroke at age 79. Social History Tried cigarettes but NO history of regular tobacco use. Denies alcohol use. Denies illicit drug use. Physical Exam Vital Signs Vital Signs Date Time Temp Pulse Resp B/P Pulse Ox O2 Delivery O2 Flow Rate FiO2 04/03/17 18:19 85 18 153/83 97 Room Air 04/03/17 16:50 96 18 127/51 98 Room Air 04/03/17 14:39 97 Room Air 04/03/17 14:39 63 18 128/52 65 18 140/62 73 18 135/64 04/03/17 13:45 97.7 70 18 128/64 97 04/03/17 13:40 70 97 Room Air Physical Exam GENERAL: This is a well-nourished, well-developed patient, in no apparent distress. SKIN: No rashes, ecchymoses or lesions. Cool and dry. HEAD: Atraumatic. Normocephalic. No temporal or scalp tenderness. EYES: Pupils equal round and reactive. Extraocular motions intact. No scleral icterus. No injection or drainage. ENT: Nose without bleeding, purulent drainage or septal hematoma. Throat without erythema, tonsillar hypertrophy or exudate. Uvula midline. Airway patent. NECK: Trachea midline. No JVD or lymphadenopathy. Supple, nontender, no meningeal signs. CARDIOVASCULAR: Regular rate and rhythm without murmurs, gallops, or rubs. RESPIRATORY: Clear to auscultation. Breath sounds equal bilaterally. No wheezes , rales, or rhonchi. GASTROINTESTINAL: Abdomen soft, non-tender, nondistended. No hepato-splenomegaly , or palpable masses. No guarding. MUSCULOSKELETAL: Extremities without clubbing, cyanosis, or edema. No joint tenderness, effusion, or edema noted. No calf tenderness. Negative Homans sign bilaterally. NEUROLOGICAL: Awake and alert. Cranial nerves II through XII intact. Motor and sensory grossly within normal limits. Five out of 5 muscle strength in all muscle groups. Normal speech. Laboratory Laboratory Tests Test 04/03/17 14:10 White Blood Count 5.2 Red Blood Count 4.09 Hemoglobin 12.6 Hematocrit 37.0 Mean Corpuscular Volume 90.5 Mean Corpuscular Hemoglobin 30.7 Mean Corpuscular Hemoglobin 33.9 Concent Red Cell Distribution Width 12.1 Platelet Count 185 Mean Platelet Volume 8.0 Neutrophils (%) (Auto) 62.0 Lymphocytes (%) (Auto) 25.1 Monocytes (%) (Auto) 8.6 Eosinophils (%) (Auto) 3.5 Basophils (%) (Auto) 0.8 Neutrophils # (Auto) 3.3 Lymphocytes # (Auto) 1.3 Monocytes # (Auto) 0.4 Eosinophils # (Auto) 0.2 Basophils # (Auto) 0.0 CBC Comment DIFF FINAL Differential Comment Urine Collection Type CLEAN CATCH Urine Color YELLOW Urine Turbidity CLEAR Urine pH 7.5 Urine Specific [place] 1.014 Urine Protein NEG Urine Glucose (UA) NEG Urine Ketones NEG Urine Occult Blood NEG Urine Nitrite NEG Urine Bilirubin NEG Urine Leukocyte Esterase MOD Urine WBC 3-5 Urine Squamous Epithelial 0-5 Cells Urine Renal Epithelial Cells 6-8 Urine Hyaline Casts 3-5 Microscopic Urinalysis Comment CULT NOT INDICATED Urine Collection Time 14:10 Sodium Level 136 Potassium Level 3.4 Chloride Level 100 Carbon Dioxide Level 24.9 Anion Gap 11 Blood Urea Nitrogen 17 Creatinine 1.30 Estimat Glomerular Filtration 39 Rate Random Glucose 117 Calcium Level 8.8 Magnesium Level 1.9 Total Creatine Kinase 54 Troponin I LESS THAN 0.02 Result Diagram: 04/03/17 1410 04/03/17 1410 Assessment and Plan Problem List: (1) Pre-syncope ICD Code: R55 Status: Acute (2) [place] (acute kidney injury) ICD Code: N17.9 Status: Acute (3) Hypokalemia ICD Code: E87.6 Status: Acute (4) Constipation ICD Code: K59.00 Status: Acute Assessment and Plan Very pleasant 87-year-old female with: Presyncope. Resolved. Likely secondary to hypotension, dehydration [place]: Creatinine 0.83 on recent last ED visit 03/30. On this admission Cr 1.30 EKG reviewed with normal sinus rhythm. There are deep S waves in lead 3; S waves in aVF, and nonspecific flattened T waves in lead I and aVL. Troponin less than 0.02. UA with moderate leukocyte esterase, but no increase in urine white blood cells or nitrites. Will discontinue bactim Hold Diovan and Lisinopril-HCTZ due to impaired renal function Neuro checks PT for evaluation Start IV hydration NS at 100 mL/hr Monitor intake and output Repeat BMP in the morning Avoid nephrotoxins Hypokalemia: Mild 3.4. K+ was 3.1 on 03/30/17. Patient given 30 mEq by mouth KCl in the ED. Continue home KCl 20 mEq daily by mouth Will discontinue HCTZ Constipation: No BM since 03/30/17. One dose of Lactulose now. Lactulose and Dulcolax as needed for severe constipation. DM2: Patient only on metformin at home. BGL 117 on admission Hold metformin, restart at DC Bedside Accu-Cheks with low dose sliding scale insulin as needed Hypertension: Patient was initially hypotensive on EMS arrival according to the ED note, but BP has normalized. Continue Doxazosin and Amlodipine Hold Diovan and Lisinopril-HCTZ due to impaired renal function Other chronic medical problems appears stable, continue home meds: bladder incontinence, GERD, hyperlipidemia: DVT prevention: TEDs/SCDs. Discussed Condition With Patient, nurse, ED physician. Discussed with family at bedside. Shahnaz Pringle MD Apr 03, 2017 20:27
[2017-04-03] MEDS: SODIUM CHLORIDE 0.9% FLUSH 10 ML FLUSH IV FLUSH SCH (20:48)
[2017-04-03] MEDS: DOCUSATE SODIUM 50 MG/SENNA 8.6 MG TAB PO SCH (20:49)
[2017-04-03] MEDS: INSULIN ASPART SUPPLEMENTAL SCALE SQ SCH (20:50)
[2017-04-03] MEDS ORDERED: SULFAMETHOXAZOLE-TRIMETHOPRIM DS 800-160 MG TAB PO SCH (21:00)
[2017-04-04] VITALS: BP 150/64; PULSE 64; RESP 18; TEMP 98.2; O2SAT 95
[2017-04-04] MEDS: SODIUM CHLOR 0.9% 1000 ML INJ 1,000 ML IV SCH ×2 (02:25→11:30)
[2017-04-04 06:38] LABS: AUTOMATED NEUTROPHIL # 3.7 TH/MM3 (1.8-7.7); BASOPHIL % 0.2 % (0.0-2.0); EOSINOPHIL # 0.2 TH/MM3 (0-0.4); EOSINOPHIL % 3.2 % (0.0-4.0); HEMATOCRIT 35.8 % (35.0-46.0); HEMO FLAGS DIFF FINAL; LYMPH % 17.1 % (9.0-44.0); LYMPHOCYTE # 0.9 TH/MM3 (1.0-4.8); MEAN CELL VOLUME 89.9 FL (80.0-100.0); MEAN CORPUSCULAR HEMOGLOBIN 29.9 PG (27.0-34.0); MEAN CORPUSCULAR HGB CONC 33.3 % (32.0-36.0); MONO % 11.2 % (0.0-8.0); NEUT % 68.3 % (16.0-70.0); PLATELET COUNT 230 TH/MM3 (150-450); RED BLOOD COUNT 3.98 MIL/MM3 (4.00-5.30); RED CELL DISTRIBUTION WIDTH 12.1 % (11.6-17.2); WHITE BLOOD COUNT 5.4 TH/MM3 (4.0-11.0)
[2017-04-04 06:59] LABS: BICARBONATE 27.1 MEQ/L (21.0-32.0); POTASSIUM 4.3 MEQ/L (3.5-5.1)
[2017-04-04 08:00] VITALS: BP 149/71; PULSE 65; RESP 18; TEMP 97.5; O2SAT 96
--- NOTE | 2017-04-04 08:31 | HHI.PR ---
Subjective Remarks The patient is at the margin of the bed says she feels much better. Says she was able to ambulate to the bathroom without any dizziness and she feels good. No nausea or vomiting. Denies fever or chills. Is comfortable to go home today Objective Vitals Vital Signs Date Time Temp Pulse Resp B/P Pulse Ox O2 Delivery O2 Flow Rate FiO2 04/04/17 00:00 98.2 64 18 150/64 95 04/03/17 20:00 98.5 77 18 150/71 95 04/03/17 18:19 85 18 153/83 97 Room Air 04/03/17 16:50 96 18 127/51 98 Room Air 04/03/17 14:39 97 Room Air 04/03/17 14:39 63 18 128/52 65 18 140/62 73 18 135/64 04/03/17 13:45 97.7 70 18 128/64 97 04/03/17 13:40 70 97 Room Air I/O 04/03/17 04/03/17 04/03/17 04/04/17 04/04/17 04/04/17 07:00 15:00 23:00 07:00 15:00 23:00 Intake Total 1500 ml 1889 ml Output Total 400 ml Balance 1100 ml 1889 ml Intake Oral 220 ml IV Total 1500 ml 1669 ml Output Urine Total 400 ml # Voids 2 # Bowel Movements 0 Result Diagram: 04/04/17 0600 04/04/17 0600 Objective Remarks GENERAL: This is a well-nourished, well-developed patient, in no apparent distress. CARDIOVASCULAR: Regular rate and rhythm without murmurs, gallops, or rubs. RESPIRATORY: Clear to auscultation. Breath sounds equal bilaterally. No wheezes , rales, or rhonchi. GASTROINTESTINAL: Abdomen soft, non-tender, nondistended. No hepato-splenomegaly , or palpable masses. No guarding. MUSCULOSKELETAL: Extremities without clubbing, cyanosis, or edema. No joint tenderness, effusion, or edema noted. No calf tenderness. Negative Homans sign bilaterally. NEUROLOGICAL: Awake and alert. Cranial nerves II through XII intact. Motor and sensory grossly within normal limits. Five out of 5 muscle strength in all muscle groups. Normal speech. A/P Problem List: (1) Pre-syncope ICD Code: R55 Status: Acute (2) [place]T (acute kidney injury) ICD Code: N17.9 Status: Acute (3) Hypokalemia ICD Code: E87.6 Status: Acute (4) Constipation ICD Code: K59.00 Status: Acute Assessment and Plan Very pleasant 87-year-old female with: Presyncope. Resolved. Likely secondary to hypotension, dehydration [place]T: Resolved. Creatinine 0.83 on recent last ED visit 03/30. On this admission Cr 1.30. EKG reviewed with normal sinus rhythm. There are deep S waves in lead 3; S waves in aVF, and nonspecific flattened T waves in lead I and aVL. Troponin less than 0.02. UA with moderate leukocyte esterase, but no increase in urine white blood cells or nitrites. Will discontinue bactim Hold Diovan and Lisinopril-HCTZ due to impaired renal function Neuro checks PT for evaluation Continue IV hydration NS at 100 mL/hr, encouraged PO hydration. Monitor intake and output Repeat BMP in the morning. Cr 0.9 Avoid nephrotoxins Hypokalemia: Mild 3.4. K+ was 3.1 on 03/30/17. Patient given 30 mEq by mouth KCl in the ED. Continue home KCl 20 mEq daily by mouth Discontinue HCTZ Constipation: No BM since 03/30/17. Received Lactulose. Lactulose and Dulcolax as needed for severe constipation. DM2: Patient only on metformin at home. BGL 117 on admission Hold metformin, restart at DC Bedside Accu-Cheks with low dose sliding scale insulin as needed Hypertension: Patient was initially hypotensive on EMS arrival according to the ED note, but BP has normalized. Continue Doxazosin and Amlodipine Hold Diovan and Lisinopril-HCTZ due to impaired renal function Other chronic medical problems appears stable, continue home meds: bladder incontinence, GERD, hyperlipidemia: DVT prevention: TEDs/SCDs. Discussed Condition With Patient, nurse Discharge Planning Discharge home in stable condition To follow-up with PCP in [place] as outpatient Diet healthy heart diet as tolerated Activities ad shyla. as tolerated Medications per medication reconciliation. Stop lisinopril/hydrochlorothiazide Shahnaz Pringle MD Apr 04, 2017 08:31
[2017-04-04] MEDS ORDERED: PRAVASTATIN SOD 40 MG TAB PO SCH (09:00)
[2017-04-04] MEDS: DOXAZOSIN MESYLATE 4 MG TAB PO SCH ×2 (09:00→09:07)
[2017-04-04] MEDS: DOCUSATE SODIUM 50 MG/SENNA 8.6 MG TAB PO SCH (09:00)
[2017-04-04] MEDS: SODIUM CHLORIDE 0.9% FLUSH 10 ML FLUSH IV FLUSH SCH (09:00)
[2017-04-04] MEDS ORDERED: POTASSIUM CHLORIDE 20 MEQ CONTROLLED RELEASE TAB PO SCH (09:00)
[2017-04-04] MEDS ORDERED: SENN1TAB PO (10:57)
--- NOTE | 2017-04-04 10:59 | HHI.DCPOC ---
Discharge Care Plan Goals to Promote Your Health * To prevent worsening of your condition and complications * To maintain your health at the optimal level Directions to Meet Your Goals Take your medications as prescribed Follow your dietary instruction Follow activity as directed Keep your appointments as scheduled Take your immunizations and boosters as scheduled If your symptoms worsen call your PCP, if no PCP go to Urgent Care Center or Emergency Room Smoking is Dangerous to Your Health. Avoid second hand smoke Call the 24-hour hour crisis hotline for domestic abuse at Shahnaz Pringle MD Apr 04, 2017 10:59
[2017-04-04] MEDS: INSULIN ASPART SUPPLEMENTAL SCALE SQ SCH (11:00)
[2017-04-04 12:00] VITALS: BP 146/68; PULSE 81; RESP 18; TEMP 96.9; O2SAT 95
[2017-04-05] MEDS ORDERED: TOLTERODINE TARTRATE 4 MG CAP LA PO SCH (09:00)
--- NOTE | 2017-04-05 11:10 | EKG ---
Date Performed: 04/03/2017 Time Performed: 14:21:37 PTAGE: 87 years EKG: Sinus rhythm NONSPECIFIC T-WAVE ABNORMALITY BORDERLINE ECG PREVIOUS TRACING : 03/30/2017 20.01 DOCTOR: Taye Duran Interpretating Date/Time 04/05/2017 11:00:38
== END 2017-04-04 13:46 | disposition home or self-care (01) ==
LOC: PHED 13:32 → PHEDA 15:23 → PH3A 19:00
PROVIDERS: ADMIT Hospitalist; ATTEND Hospitalist
DX: R55 Syncope and collapse (principal); N17.9 Acute kidney failure, unspecified; E87.6 Hypokalemia; K59.00 Constipation, unspecified; R32 Unspecified urinary incontinence; R42 Dizziness and giddiness; R05 Cough; R35.0 Frequency of micturition; R20.2 Paresthesia of skin; I95.9 Hypotension, unspecified; I10 Essential (primary) hypertension; E11.9 Type 2 diabetes mellitus without complications; E78.5 Hyperlipidemia, unspecified; E78.00 Pure hypercholesterolemia, unspecified; K21.9 Gastro-esophageal reflux disease without esophagitis; H91.90 Unspecified hearing loss, unspecified ear; H35.30 Unspecified macular degeneration; M46.90 Unspecified inflammatory spondylopathy, site unspecified; M19.90 Unspecified osteoarthritis, unspecified site; Z79.84 Long term (current) use of oral hypoglycemic drugs; Z79.899 Other long term (current) drug therapy
CPT/HCPCS: 80048; 81001; 82550; 82948; 83735; 84484; 85025; 93005; 96361; 96374; 97162; 99285; G0378; G8987; G8988; J1650; J2405; J7030

== ENCOUNTER 2018-01-04 12:46 | Emergency (ER) | payer MEDICARE, BC ==
[~2018-01-04] VITALS: Ht 157.5 cm; Wt 63.9 kg
[~2018-01-04 12:46] MED LIST changes: -BACT800T5 PO; -LISI20TA PO; -POTA10CA PO; +SENN1TAB PO; -ZOFR4TAB3 SL
[2018-01-04 12:53] VITALS: BP 179/75; PULSE 72; RESP 16; TEMP 97.9; O2SAT 96
--- NOTE | 2018-01-04 13:18 | PD ---
HPI Chief Complaint: Constipation Time Seen by Provider: 13:11 Travel History International Travel<30 days: No Contact w/Intl Traveler<30days: No Traveled to known affect area: No History of Present Illness HPI 87yo F with PMH of HTN, DM here with c/o inability to have bowel movement for 1 week. Pt called PMD and has been using miralax but not working. Feels stool in rectum but cant get it out. Denies any fever, chest pain, sob, n/v, abdominal pain, dysuria, hematuria. PFSH Past Medical History Hx Anticoagulant Therapy: Yes (asa 162mg) Arthritis: Yes Anxiety: Yes Depression: No Cancer: No Cardiovascular Problems: Yes (hx of htn on meds SICK SINUS SYNDROME) High Cholesterol: Yes Chemotherapy: No Diabetes: Yes (type 2) Patient Takes Glucophage: Yes (01-03) Diminished Hearing: Yes Endocrine: Yes Gastrointestinal Disorders: Yes (reflux CONSTIPATION) GERD: Yes Glaucoma: No Genitourinary: No Hepatitis: No Hiatal Hernia: No Hypertension: Yes Immune Disorder: No Implanted Vascular Access Dvce: Yes Medical other: Yes (ACID REFLUX-BLADDER LEAKING-EARLY MACULAR DEGENERATION) Musculoskeletal: No Neurologic: No Psychiatric: No Reproductive: No Respiratory: No Immunizations Current: Yes Radiation Therapy: No Thyroid Disease: No Tetanus Vaccination: > 5 Years Influenza Vaccination: Yes Dilation and Curettage (D&C): Yes Tubal Ligation: Yes Past Surgical History Abdominal Surgery: Yes (gallbladder) Body Medical Devices: Wire used for inner ear repair Ear Surgery: Yes (inner ear repair) Eye Surgery: Yes (cataract) Genitourinary Surgery: Yes (bladder lift) Gynecologic Surgery: Yes (tubaligation) Joint Replacement: Yes (Knee) Pacemaker: No Other Surgery: Yes Social History Alcohol Use: No Tobacco Use: No Substance Use: No Allergies-Medications (Allergen,Severity, Reaction): Coded Allergies: penicillin G (Unverified Allergy, Severe, HIVES, 01/04/18) Reported Meds & Prescriptions Reported Meds & Active Scripts Active Senna Plus 8.6-50 mg (Sennosides-Docusate Sodium) 1 Tab Tab 1 Tab PO BID Reported Aspirin 81 Mg Chew 162 Mg CHEW DAILY Aspirin Children's (Aspirin) 81 Mg Chew 81 Mg CHEW DAILY Carvedilol 3.125 Mg Tab 3.125 Mg PO BID Losartan (Losartan Potassium) 100 Mg Tab 100 Mg PO DAILY L-Thyroxine (Bulk) (Levothyroxine (Bulk)) Bulk Pow 25 Mg PO DAILY Fish Oil ([place]-3 Fatty Acids) 1,000 Mg Cap 1,000 Mg PO TID Omeprazole 20 Mg Cap 20 Mg PO Simvastatin 20 Mg Tab 20 Mg PO DAILY Metformin (Metformin HCl) 500 Mg Tab 500 Mg PO DAILY With a meal Ditropan XL 24 HR (Oxybutynin Chloride) 10 Mg Tab 10 Mg PO EVERY OTHER DAY Amlodipine (Amlodipine Besylate) 10 Mg Tab 10 Mg PO DAILY Review of Systems Except as stated in HPI: all other systems reviewed are Neg Physical Exam Narrative GENERAL: 87yo F not in distress. SKIN: Focused skin assessment warm/dry. HEAD: Atraumatic. Normocephalic. CARDIOVASCULAR: Regular rate and rhythm. No murmur appreciated. RESPIRATORY: No accessory muscle use. Clear to auscultation. Breath sounds equal bilaterally. GASTROINTESTINAL: Abdomen soft, non-tender, nondistended. No rebound tenderness or guarding. RECTAL: MUSCULOSKELETAL: No obvious deformities. No clubbing. No cyanosis. No edema. NEUROLOGICAL: Awake and alert. No obvious cranial nerve deficits. Motor grossly within normal limits. Normal speech. PSYCHIATRIC: Appropriate mood and affect; insight and judgment normal. Data Data Last Documented VS Vital Signs Date Time Temp Pulse Resp B/P (MAP) Pulse Ox O2 Delivery O2 Flow Rate FiO2 01/04/18 15:15 82 20 189/74 (112) 98 Room Air 01/04/18 12:53 97.9 Orders Orders Fleets Enema (Adult) (Fleets Enema (Adul (01/04/18 14:45) [facility] Medical Decision Making Medical Screen Exam Complete: Yes Emergency Medical Condition: Yes Differential Diagnosis Constipation Narrative Course 87yo F with c/o constipation for 1 week. Said she feels the stool in her rectum but cant get it out. I manually disimpacted patient and then gave fleet enema and pt had a bowel movement after. Pt is feeling much better and wants to go home. Denies any abdominal pain. Return precautions given. Diagnosis Primary Impression: Constipation Qualified Codes: K59.00 - Constipation, unspecified Patient Instructions: General Instructions Departure Forms: Tests/Procedures Additional Instructions: Please follow up with your primary care physician in 3-7 days. Return to the ED if symptoms worsen. Med/Other Pt SpecificInfo: Prescription(s) given Scripts Docusate Sodium (Colace) 100 Mg Capsule 100 MG PO BID for Prevent Constipation for 7 Days, #14 CAP 0 Refills Prov: Kristal Nino DO 01/04/18 Disposition: 01 DISCHARGE HOME Condition: Stable Kristal Nino DO Jan 04, 2018 13:18
[2018-01-04] MEDS ORDERED: ASPI81CH7 CHEW (13:19)
[2018-01-04] MEDS ORDERED: ASPI-516 CHEW (13:19)
[2018-01-04] MEDS ORDERED: CARV3.12 PO (13:19)
[2018-01-04] MEDS ORDERED: L-THPOW PO (13:19)
[2018-01-04] MEDS ORDERED: LOSA100T PO (13:19)
[2018-01-04] MEDS ORDERED: SOD PHOSPHATE/SOD BIPHOSPHATE (ADULT) ENEMA 133ML RECTAL ONE (14:45)
[2018-01-04 15:15] VITALS: BP 189/74; PULSE 82; RESP 20; O2SAT 98
[2018-01-04] MEDS ORDERED: COLA100C5 PO (15:34)
== END 2018-01-04 16:19 | disposition home or self-care (01) ==
LOC: PHED 12:46
DX: K59.00 Constipation, unspecified (principal); I10 Essential (primary) hypertension; E11.9 Type 2 diabetes mellitus without complications; M19.90 Unspecified osteoarthritis, unspecified site; F41.9 Anxiety disorder, unspecified; E78.00 Pure hypercholesterolemia, unspecified; K21.9 Gastro-esophageal reflux disease without esophagitis; H35.30 Unspecified macular degeneration; Z79.82 Long term (current) use of aspirin
CPT/HCPCS: 99283

== ENCOUNTER 2018-01-21 08:25 | Day surgery (SDC) | payer MEDICARE, BC ==
[~2018-01-21] VITALS: Ht 157.5 cm; Wt 64.2 kg
[~2018-01-21 08:25] MED LIST changes: +ASPI-516 CHEW; +ASPI81CH7 CHEW; +CARV3.12 PO; +COLA100C5 PO; -DIOV80TA4 PO; -DOXA1TAB43 PO; +L-THPOW PO; +LOSA100T PO; -MECL-62 PO; -POTA-163 PO
[2018-01-21] MEDS ORDERED: IOHEXOL 350 MG/ML 100 ML BTL (for Cath Lab) OTHER ONE (08:26)
[2018-01-21 09:10] VITALS: BP 154/74; PULSE 70; RESP 16; TEMP 97.7; O2SAT 96
[2018-01-21] MEDS ORDERED: DOXA1TAB35 PO (09:16)
[2018-01-21 09:29] LABS: AUTOMATED NEUTROPHIL # 2.4 TH/MM3 (1.8-7.7); BASOPHIL % 0.6 % (0.0-2.0); EOSINOPHIL # 0.3 TH/MM3 (0-0.4); HEMATOCRIT 38.2 % (35.0-46.0); HEMOGLOBIN 13.3 GM/DL (11.6-15.3); LYMPH % 28.7 % (9.0-44.0); LYMPHOCYTE # 1.3 TH/MM3 (1.0-4.8); MEAN CORPUSCULAR HEMOGLOBIN 30.6 PG (27.0-34.0); MEAN CORPUSCULAR HGB CONC 34.8 % (32.0-36.0); MEAN PLATELET VOLUME 8.3 FL (7.0-11.0); MONO % 11.2 % (0.0-8.0); MONOCYTE # 0.5 TH/MM3 (0-0.9); NEUT % 53.5 % (16.0-70.0); PLATELET COUNT 210 TH/MM3 (150-450); RED BLOOD COUNT 4.34 MIL/MM3 (4.00-5.30); RED CELL DISTRIBUTION WIDTH 13.1 % (11.6-17.2); WHITE BLOOD COUNT 4.5 TH/MM3 (4.0-11.0)
[2018-01-21] MEDS ORDERED: ASPIRIN 325 MG TAB PO SCH (09:30)
[2018-01-21] MEDS ORDERED: diphenhydrAMINE HCL 50 MG CAP PO SCH (09:30)
[2018-01-21 09:41] LABS: INTERNATIONAL NORMALIZED RATIO 1.1 RATIO; PROTHROMBIN TIME - PATIENT 10.7 SEC (9.8-11.6)
[2018-01-21 09:58] LABS: BICARBONATE 27.6 MEQ/L (21.0-32.0); CALCIUM 9.3 MG/DL (8.5-10.1); CREATININE 0.93 MG/DL (0.50-1.00)
[2018-01-21] MEDS ORDERED: NS 1000 ML @100 MLS/HR IV SCH (10:00)
[2018-01-21] MEDS ORDERED: HEPARIN SODIUM - IV 10,000 UNITS/10 ML VIAL ONE (11:04)
[2018-01-21] MEDS ORDERED: HEPARIN-NS/PF FLUSH BAG 2,000 ML IV FLUSH ONE (11:04)
[2018-01-21] MEDS ORDERED: MIDAZOLAM HCL 2 MG/2 ML VIAL ONE (11:10)
[2018-01-21] MEDS ORDERED: LIDOCAINE HCL 1% PF 30 ML VIAL ONE (11:11)
--- NOTE | 2018-01-21 12:27 | CATHPROC ---
[facility] HIS Report Study Information Study Number Admission Scheduled Start Study Start [id number] Jan 21 2018 8:25AM 01/21/2018 Jan 21 2018 10:52AM [place] Service Cardiac Catheterization Admit Source Facility Department Other [facility] - Patient Coordinator Front Desk Physician and Clinical Staff Initial Genia Mcclain Junior Estimator Eric RN, Roque Junior EstimatorArjun Wagoner,JENNIFER Recorder Elen Dominguez,RT(R) Recorder Tristen Gay,RT(R) Scrub Johanna Meier,RT(R) Procedures Performed Procedure Location (Site) Vessel Name Angiogram LV LV Ventricle Coronary Angiograms LCA Left Coronary Coronary Angiograms RCA Right Coronary L Heart Cath Equipment Time Marine Structural Designer Description Size Mfg Part Number Used/Scraped STARCLOSE, VASCULAR CLOSER [id number] 12:04 [employer] FR 6 Used SYSTEM *[id number] TRANSDUCER, TRUWAVE [id number] 11:03 VALENZUELA YOUSSEF * Used W/STOCKCOCK *[id number] *[id number] *[id number] PIGTAIL ANG. 145 INFINITI [id number] CATHETER *[id number] 11:03 [employer] INDUSTRIES PACK, CCL CUSTOM * Used *[id number] 11:03 [employer] PACER PEN, SKIN DUAL W/ RULER * Used *[id number] 11:03 [employer] MEDICAL SHEATH, FR6.5 PRELUDE 11CM FR 6.5 038ACT Used *[id number] 11:03 [employer] MEDICAL WIRE, 3MMJ .035 180CM 180CM Used *[id number] 11:03 NAMIC MANIFOLD, 4 PORT * Used *[id number] 11:03 [employer]COMED OMNIPAQUE, 350 MG, 150ML 150ML [id number] Used 11:54 NYCOMED OMNIPAQUE, 350 MG, 50ML 50ML [id number] Used [id number] 11:03 [employer] BLANKET,WARM AIR CCL * Used *[id number] History: Current Medications Medication Dosage/Unit Route Frequency Last Date/Time Taken Glucophage Statins (any) CARVEDILOL ASA History: Allergies Allergy Reaction Penicillin HIVES penicillin G HIVES History: Risk Factors Family History of Hypertension Dyslipidemia Previous [facility] Previous Heart Failure Premature CAD Yes Yes No No No Prior Valve Prior PCI Prior CABG Surgery No No No Cerebrovascular Peripheral Artery Chronic Lung On Dialysis Diabetes Diabetes Therapy Disease Disease Disease No No No No Yes Oral History: Symptoms/Diagnosis Selection Items Palpitations History: Stress Tests Stress or Imaging Studies Performed Yes Standard Exercise Stress Test No Stress Echo No Stress Test SPECT Stress Test SPECT Result Stress Test SPECT Ischemia Risk/Extent Yes Positive Intermediate Stress Test CMR No Cardiac CTA Coronary Calcium Score No No History: Other Disease Selection Items HTN History: Other Current Smoker No Labs Hgb (g/dl) Hct (%) RBC (MIL/MM3) WBC (l/cumm) Platelets (thousands) 11.60-17.00 35.00-51.00 4.00-5.90 4.00-11.00 150.00-450.00 13.3 38.2 4.3 4.5 210 Glucose (mg/dl) BUN (mg/dl) Creatinine (mg/dl) BUN:Creatinine (1:x) 74.00-106.00 7.00-18.00 0.50-1.30 10.00-20.00 111 18 0.9 20 Na (meq/l) K (meq/l) 136.00-145.00 3.50-5.10 143 3.7 PT (sec) PTT (sec) INR (PTT:PT) 9.80-11.60 24.30-30.10 0.90-1.10 10.7 26.6 1.1 CPK-MB (ng/ML) 0.50-3.60 Not Drawn Medication Medication Total Dose (Bolus/Oral) Medication Total Dosage/Unit 1% XYLOCAINE 20 mL FENTANYL 25 mcg HEPARIN 1000 units NTG (IC) 100 mcg VERSED 1 mg Medications (Bolus/Oral) Medication Time Given Dosage/Unit Administered By Reason VERSED 01/21/2018 11:33:00 AM 1 mg Arjun Caldwell 1 mg VERSED given in lab by Arjun Caldwell RN in Left Antecubital via Peripheral IV. FENTANYL 01/21/2018 11:34:00 AM 25 mcg Arjun Caldwell 25 mcg FENTANYL given in lab by Arjun Caldwell RN in Left Antecubital via Peripheral IV. 1% XYLOCAINE 01/21/2018 11:34:49 AM 20 mL Genia Shoemaker 20 mL 1% XYLOCAINE given in lab by Genia Shoemaker in Right Groin via Subcutaneous. HEPARIN 01/21/2018 11:38:20 AM 1000 units Genia Shoemaker 1000 units HEPARIN given in lab by Genia Shoemaker in Right Groin via Intra-arterial. NTG (IC) 01/21/2018 11:42:02 AM 100 mcg Genia Shoemaker 100 mcg NTG (IC) given in lab by Genia Shoemaker in Right Groin via Intra-coronary. Medication (Drip) Medication Time Given Dosage/Unit Concentration/Unit Diluent (ml) Solutio n IV Solutions 01/21/2018 11:01:56 AM 50 mL (IV) NaCl .9 IV Solutions given in lab by Arjun Caldwell RN in Left Antecubital via Peripheral IV. Pump/Drip Flow u sing NaCl .9. Initial Case Assessment Cardiovascular HR Rhythm NIBP Chest Pain 71 sr 154/73 0 Edema Present Skin color Skin None Normal Warm Dry Circulatory - Right Pulses Dorsalis Pedis Femoral 2 2 Scale (0,1,2,3,4,d) Circulatory - Left Pulses Dorsalis Pedis Femoral 2 2 Scale (0,1,2,3,4,d) Neurological State Oriented to time-place- Alert Moves all extremities person Respiration - General Respiration Rate SpO2 (%) (B/min) 11 97 Final Case Assessment Cardiovascular HR Rhythm NIBP Chest Pain 61 Sinus 118/59 0 Edema Present Skin color Skin None Normal Warm Dry Circulatory - Right Pulses Dorsalis Pedis Femoral 2 2 Scale (0,1,2,3,4,d) Circulatory - Left Pulses Dorsalis Pedis Femoral 2 2 Scale (0,1,2,3,4,d) Neurological State Oriented to time-place- Alert Moves all extremities person Respiration - General Respiration Rate SpO2 (%) O2 (lpm) (B/min) 17 96 2 Chronological Log Time Study Chronological Log 10:52:08 Patient arrived via Bed. 10:52:13 Patient Name, D.O.B, / Armband Verified By R.N. 11:01:42 Consent signed by the physician and the patient and verified by the Patient Coordinator Front Desk staff. 11:01:43 Pre-op and post- op instructions given; patient acknowledges understanding of instructions. 11:01:45 Verbal Stimulation=2 Physical Stimulation=2 Airway=2 Respiration=2 TOTAL=8. (0=absent, 1=li mited, 2=present) 11:01:50 Patient has been NPO for More than 6Hrs. 11:01:51 Skin Breakdown- none per patient 11:01:52 Patient Warmer Placed on the Table. 11:01:54 Brea Prominences Protected 11:01:55 A # 20 IV was noted in the Antecubital (left). Grade = 0 11:01:56 IV Solutions given in lab by Arjun Caldwell RN in Left Antecubital via Peripheral IV. Pump/D rip Flow using NaCl .9. 11:01:57 History and physical on the chart or being dictated. Assessment: Initial Case, HR=71 BPM, Rhythm=sr, GLAG=378/73 mmhg, Chest Pain=0, Edema=None, Col or=Normal, Skin = Warm, Dry Right Pulses: Kraig Ped=2, Femoral=2 11:01:59 Left Pulses: Kraig Ped=2, Femoral=2 Neurological: State=Alert, Ox3, Respiration: Resp=11 B/min, SpO2=97 % Vitals capture started with the following parameters, Patient=Adult, Interval=5 min, Initial Pr cqnfah=703 mmHg, 11:03:36 Deflation Rate=5 mmHg, Cuff placed on Unknown 11:04:24 Reference ECG taken 11:04:54 HR=72 bpm, MHNH=924/73 mmhg, SpO2=96.0 %, Resp=8 B/min, Pain=0, Maddie=10, Pearson=2 11:09:20 HR=69 bpm, WPSB=840/77 mmhg, SpO2=96.0 %, Resp=9 B/min, Pain=0, Maddie=10, Pearson=2 11:14:17 HR=77 bpm, VNLU=173/77 mmhg, SpO2=96.0 %, Resp=9 B/min, Pain=0, Maddie=10, Pearson=2 11:15:08 Bilateral groins prepped with 2% chlorhexidine, and draped after a 3 minute waiting time. 11:19:57 HR=75 bpm, NBPL=758/82 mmhg, SpO2=96.0 %, Resp=13 B/min, Pain=0, Maddie=10, Pearson=2 11:21:06 MD paged 11:22:25 MD arrived. 11:23:05 Pressure channel 1 zeroed. 11:24:23 HR=72 bpm, ZBND=128/75 mmhg, SpO2=94.0 %, Resp=7 B/min, Pain=0, Maddie=10, Pearson=2 11:29:20 HR=73 bpm, MUXE=499/63 mmhg, SpO2=93.0 %, Resp=8 B/min, Pain=0, Maddie=10, Pearson=2 Time Out. Correct patient, correct procedure, correct physician, power injector loaded with con trast with surgical team 11:31:57 present. Time Out Concurred by MD and individual staff in procedure. 11:33:00 1 mg VERSED given in lab by Arjun Caldwell RN in Left Antecubital via Peripheral IV. 11:33:11 Case Start 11:34:00 25 mcg FENTANYL given in lab by Arjun Caldwell RN in Left Antecubital via Peripheral IV. 11:34:21 HR=75 bpm, JMMO=257/77 mmhg, SpO2=95.0 %, Resp=13 B/min, Pain=0, Maddie=10, Pearson=2 11:34:49 20 mL 1% XYLOCAINE given in lab by Genia Shoemaker in Right Groin via Subcutaneous. 11:37:07 Access site was Right Femoral Artery. 11:37:21 A SHEATH, FR6.5 PRELUDE 11CM FR 6.5 was advanced into the Fem Art (right) using the Percuta neous technique. 11:38:20 1000 units HEPARIN given in lab by Genia Shoemaker in Right Groin via Intra-arterial. A JL 4.0 INFINITI CATHETER FR 6 was advanced over a wire. OMNIPAQUE, 350 MG, 150ML 150ML was us ed for 11:38:45 injections. 11:39:20 HR=75 bpm, SVUC=992/64 mmhg, SpO2=91.0 %, Resp=7 B/min, Pain=0, Maddie=10, Pearson=2 Recorded Pressure: Ao, HR=77, Condition=Condition 1 11:39:50 (Aorta) Ao 126/58/87 11:41:42 The LCA was injected and visualized at various angles. OMNIPAQUE, 350 MG, 150ML 150ML used . 11:42:02 100 mcg NTG (IC) given in lab by Genia Shoemaker in Right Groin via Intra-coronary. 11:44:15 HR=70 bpm, NIBP=89/50 mmhg, SpO2=94.0 %, Resp=8 B/min, Pain=0, Maddie=10, Pearson=2 11:45:47 Catheter was removed A JR 4.0 INFINITI CATHETER FR 6 was advanced over a wire. OMNIPAQUE, 350 MG, 150ML 150ML was us ed for 11:46:42 injections. 11:47:51 The RCA was injected and visualized at various angles. OMNIPAQUE, 350 MG, 150ML 150ML used . 11:49:43 HR=70 bpm, HWRP=132/59 mmhg, SpO2=96.0 %, Resp=17 B/min, Pain=0, Maddie=10, Pearson=2 11:49:59 Catheter was removed A PIGTAIL ANG. 145 INFINITI CATHETER FR 6 was advanced over a wire. OMNIPAQUE, 350 MG, 150ML 15 0ML was 11:50:03 used for injections. Recorded Pressure: LV, HR=68, Condition=Condition 1 11:52:50 (Left Ventricle) LV 133/0/3 11:54:11 The LV was injected at 10 cc/sec for a total of 22. OMNIPAQUE, 350 MG, 50ML 50ML used. 11:54:56 HR=70 bpm, FIQW=395/62 mmhg, SpO2=96.0 %, Resp=12 B/min Recorded Pressure: LV, Ao, HR=64, Condition=Condition 1 11:55:19 (Left Ventricle) LV 143/1/4, (Aorta) Ao 142/53/88 11:55:37 Catheter was removed 11:59:53 HR=70 bpm, DYYD=358/66 mmhg, SpO2=97.0 %, Resp=11 B/min, Pain=0, Maddie=10, Pearson=2 12:02:40 An injection in the Fem Art (right) was made through the SHEATH, FR6.5 PRELUDE 11CM FR 6.5 . 12:04:26 HR=65 bpm, ZAQZ=867/59 mmhg, SpO2=97.0 %, Resp=10 B/min, Pain=0, Maddie=10, Pearson=2 12:06:47 STARCLOSE, VASCULAR CLOSER SYSTEM FR 6 placement in the Fem Art (right) 12:09:21 HR=63 bpm, TPNB=324/59 mmhg, SpO2=97.0 %, Resp=9 B/min, Pain=0, Maddie=10, Pearson=2 12:09:26 Case End 12:09:32 No case complications noted. 12:09:34 Cine recording checked. 12:09:48 Bedside Report will be given. 12:12:41 Sterile dressing applied to site Assessment: Final Case, HR=61 BPM, Rhythm=Sinus, YPHD=163/59 mmhg, Chest Pain=0, Edema=None, Color=Normal, Skin = Warm, Dry Right Pulses: Kraig Ped=2, Femoral=2 12:12:44 Left Pulses: Kraig Ped=2, Femoral=2 Neurological: State=Alert, Ox3, Respiration: Resp=17 B/min, SpO2=96 %, O2=2 lpm 12:13:52 Implantable Device card placed in patient's chart. 12:13:56 A Left Heart Cath was performed. 12:14:59 ZBDO=179/68 mmhg, Pain=0, Maddie=10, Pearson=2 12:16:19 Vitals capture stopped. 12:19:30 Patient moved to [facility] End Study - Contrast Media Used In Study Contrast Total Opened (mL) Total Used (mL) Total Wasted (mL) Omnipaque 150 70 80 End Study - Maximum Contrast Load Max Contrast Load (mL) 356.1 End Study - Radiation Exposure Fluoro Time (minutes) 2.4 End Study - Patient Disposition Complications Transferred To Interventional Outcome No Outpatient Bed No attempt made
[2018-01-21] MEDS ORDERED: SODIUM CHLOR 0.9% 1000 ML INJ 1,000 ML IV SCH (12:31)
--- NOTE | 2018-01-21 12:39 | EKG ---
Date Performed: 01/21/2018 Time Performed: 09:22:20 PTAGE: 88 years EKG: Sinus rhythm with PVC(s). PREVIOUS TRACING : 04/03/2017 14.21 Since the previous tracing, no significant change not ed DOCTOR: Ben Dean Interpretating Date/Time 01/21/2018 12:37:13
[2018-01-21] MEDS ORDERED: ACETAMINOPHEN 500 MG CPLT PO PRN (12:45)
[2018-01-21] MEDS ORDERED: ONDANSETRON HCL 4 MG/2 ML VIAL IV PUSH PRN (12:45)
[2018-01-21] MEDS ORDERED: SODIUM CHLOR 0.9% 250 ML INJ 250 ML IV PRN (12:45)
[2018-01-21] MEDS ORDERED: MISC INFORMATION XX ONE (12:45)
[2018-01-21] MEDS ORDERED: BACITRACIN OINT 0.9 GM PKT TOP ONE (12:45)
[2018-01-21] MEDS ORDERED: ATROPINE SULFATE 1 MG/ML VIAL IV PUSH PRN (12:45)
--- NOTE | 2018-01-21 12:57 | MA ---
cc: [facility] Sho[facility]: 01/21/2018 DATE OF PROCEDURE: 01/21/2018. PROCEDURE: 1. Left heart catheterization. 2. Coronary arteriogram. 3. Left ventriculogram. 4. Right femoral arteriogram. 5. Right femoral arteriotomy site closure using a StarClose device. 6. Conscious sedation using Versed and fentanyl for 35 minutes. CUSTOMER PRICING MANAGER: Raf Shoemaker MD BUSINESS ECONOMIST: Johanna Meier RTR INDICATIONS: Recurrent angina with an abnormal nuclear stress study suggesting moderate apical ischemia and basal inferior wall scar. Because of her persistent symptoms, she was advised to proceed with cardiac catheterization. EQUIPMENTS USED: A 6-Kittitian short sheath. A 0.035 J guidewire. A 6-Kittitian JL4, JR4, pigtail diagnostic catheters. StarClose device. PROCEDURE: After obtaining informed consent, the right groin was prepped in the usual sterile fashion. 15 mL of 1% lidocaine was used for local anesthesia. Using a modified Seldinger technique, the right femoral artery was cannulated and a 6-Kittitian short sheath was inserted in the right femoral artery. Using the above-mentioned diagnostic catheters, selective coronary angiograms were performed. This was followed by left ventriculogram performed in the VALADEZ view at a 30-degree angle. At the end of the procedure, right femoral system was injected revealing no significant disease and a StarClose device was applied achieving adequate hemostasis. The patient tolerated the procedure well without acute complication at the time of dictation. CARDIAC CATHETERIZATION FINDINGS: I. HEMODYNAMICS: Aortic pressure was 140/50 mmHg. Aortic pressure was 80 mmHg. There was no gradient across the aortic valve. Left ventricular end-diastolic pressure was 5 mmHg. II. CORONARY ARTERIOGRAM: Right coronary artery arose from the right sinus of Valsalva. This was a big, dominant vessel, calcified with some sluggish flow; however, no discrete stenosis. Diffuse plaque ranging between 30-40%. There is some small aneurysmal dilatation in the distal portion of the RCA. Mid-RV branch had minimal irregularities of less than 20%. PDA had diffuse plaque ranging between 30-40%. The PD and the PLV branch had an ostial 20% and mid 30% stenosis that was concentric. The RCA had FÉLIX grade 3 flow; however, distally. Left main artery arose from the sinus of Valsalva. This had an ostial 10-20% disease. Left anterior descending artery branched from the left main artery with mid-stepdown of about 40-50%. Then, the LAD bifurcated to a lateral LAD system that gives 2 diagonal-like branches that had proximal 30% stenosis in both of them. The LAD then extended as a small caliber vessel about 2.25 mm in diameter where it had an 80-90% stenosis in the mid-portion, then a tubular 40% mid to distal disease. The LAD extended distally to taper off at the apex with mild luminal irregularities. Left circumflex artery branched from the left main artery and this had calcified, diffuse proximal to mid-disease ranging between 20-30% and mid-eccentric 50% stenosis. Then, the circumflex gave two PLV branches. The upper branch was bigger and had mild luminal irregularities of less than 20%. The rest of the circumflex had mild luminal irregularities of less than 20%. III. LEFT VENTRICULOGRAM: Left ventriculogram revealed normal wall motion, normal systolic function, ejection fraction visual estimate is around 65%. CONCLUSION OF THE CARDIAC CATHETERIZATION: 1. Calcified coronaries and calcified aorta. 2. Mild left main disease with significant mid-left anterior descending disease after it bifurcates to a dual left anterior descending system, relatively small in caliber, but this is the culprit area for the apical ischemia. 3. Mild to moderate circumflex disease. 4. 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 Dominant right coronary artery system. 5. Normal left ventricular systolic function. 6. Normal left ventricular end-diastolic pressure. RECOMMENDATIONS: Trial of medical therapy. This patient has a tendency not to take her medications. She was given Imdur in the last office visit; however, she did not take it and planning intervention and putting a stent if she does not take her dual antiplatelet therapy. This will lead to an in-stent thrombosis with an OH and reduction in mortality. The importance of medication compliance was discussed. I gave her both options of a trial of medical therapy and if it fails, proceed with rotational atherectomy and stenting of the LAD and she wanted to take that option as opposed to proceeding with stenting of the LAD at the present time. This is not a reasonable choice because of her relatively small caliber LAD in that area and also because of the possibility of noncompliance of her medications in the future. I thank you for allowing me to participate in the care of this pleasant lady. MD STEFANIE Hicks/GEOVANY , 12:29 PM , 12:56 PM
== END 2018-01-21 15:26 | disposition home or self-care (01) ==
LOC: HDOC 08:25 → HDIC 08:26 → HDOC 15:26
PROVIDERS: ATTEND Internal Medicine Interventional Cardiology
DX: I25.110 Atherosclerotic heart disease of native coronary artery with unstable angina pectoris (principal); I10 Essential (primary) hypertension; E78.00 Pure hypercholesterolemia, unspecified; E11.9 Type 2 diabetes mellitus without complications; Z79.02 Long term (current) use of antithrombotics/antiplatelets; Z79.82 Long term (current) use of aspirin
CPT/HCPCS: 80048; 85025; 85610; 85730; 93005; 93458; 99152; 99153; C1760; C1769; C1893; G0269; J1644; J2250; J3010; Q9967